=== PATIENT | male | born 1970 | race Caucasian/White ===

== ENCOUNTER → 2020-07-29 | Outpatient (CLI) | payer OTHER ==
[~2020-07-29] MED LIST: BASAGLAR K100 UNIT/1 SQ; FOLIC ACID 1 MG1 MG PO; GLUCOPHAGE1000 MG PO; JANUVIA100 MG PO; LEXAPRO20 MG PO; LIPITOR TAB 2020 MG PO; PRINIVIL20 MG PO; PROPRANOLOL HCL80 MG PO; PROTONIX40 MG PO; THERAGRAN M TAB1 EA PO; VITAMIN B-1100 MG PO; ZOFRAN4 MG PO
== END ==
LOC: SLEEP 15:14
DX: G47.30 Sleep apnea, unspecified (principal)
CPT/HCPCS: 95810